=== PATIENT | female | born 1940 | race Caucasian/White ===

== ENCOUNTER → 2016-04-05 | Outpatient (CLI) | payer MEDICARE, OTHER | LOC: GMAB 11:09 | PROVIDERS: ATTEND Family Medicine | DX: I10 Essential (primary) hypertension (principal) ==

== ENCOUNTER 2016-06-06 12:46 | Emergency (ER) | payer MEDICARE, OTHER ==
--- NOTE | 2016-06-06 13:51 | ED.PDOC ---
History of Present Illness - General Chief Complaint: General Stated Complaint: LLE weekness Time Seen by Provider: 06/06/16 13:46 Source: patient, RN notes reviewed, Vital Signs reviewed Exam Limitations: no limitations - History of Present Illness Initial Comments: Patient reports that while in the shower about 11am this morning her left leg gave out on her and she got dizzy. She managed to get out of the shower and sit down. She got dressed, leg seemed better then she had a second episode about 11: 30. She stayed seated until her got back from tenriism about 12pm. She initially used her husbands walker incase her symptoms returned but now reports her leg is back to normal. No PIERCE, SOB or chest pain. One prior similar episode a couple weeks ago when she was unable to get out of the car due to not being able to use her left leg. That too resolved on its own. Timing/Duration: momentarily, intermittent, resolved prior to arrival Severity: mild Improving Factors: nothing Worsening Factors: nothing Associated Symptoms: weakness - LLE Allergies/Adverse Reactions: Allergies NO KNOWN ALLERGY Allergy (Verified 06/06/16 14:09) Home Medications: Ambulatory Orders Aspirin [Aspirin EC] 81 mg PO DAILY 02/11/14 Calcium 600 mg PO DAILY 02/11/14 Lisinopril 20 mg PO DAILY 02/11/14 Multiple Vitamins W/ Minerals [Centrum Silver] 1 tab PO DAILY 02/11/14 Niacin [Niacin ER] 500 mg PO DAILY 02/11/14 Vevay-3 Fatty Acids [Fish Oil] 2,000 mg PO DAILY 02/11/14 Pantoprazole Sodium 40 mg PO DAILY 02/11/14 Saxagliptin-Metformin HCl [Kombiglyze Xr 5-1000 mg] 1 tab PO BID 02/11/14 Review of Systems - Review of Systems Constitutional: States: no symptoms reported EENTM: States: no symptoms reported Respiratory: States: no symptoms reported Cardiology: States: no symptoms reported Gastrointestinal/Abdominal: States: no symptoms reported Genitourinary: States: no symptoms reported Musculoskeletal: States: see HPI Skin: States: no symptoms reported Neurological: States: no symptoms reported, weakness - LLE. Denies: headache, numbness, paresthesia, pre-existing deficit, tingling Endocrine: States: no symptoms reported Hematologic/Lymphatic: States: no symptoms reported Past Medical History (General) - Patient Medical History Hx Cardiac Disorders: Yes - cardiac cath Hx Congestive Heart Failure: No Hx Pacemaker: No Hx Hypertension: Yes Hx Diabetes: Yes Hx MRSA: No Family Medical History - Family History Mother Family History: Unknown Physical Exam - Physical Exam General Appearance: Alert, Comfortable, No apparent distress, Well Developed, Well Groomed, Well Hydrated, Well Nourished Eye Exam: bilateral normal Ears, Nose, Throat: hearing grossly normal, normal ENT inspection, normal pharynx Neck: normal inspection Respiratory: chest non-tender, lungs clear, normal breath sounds, no respiratory distress, no accessory muscle use Cardiovascular/Chest: normal peripheral pulses, regular rate, rhythm, no edema, no gallop, no JVD, no murmur Peripheral Pulses: dorsalis pedis,right: 2+, dorsalis pedis,left: 2+ Extremity: normal range of motion, non-tender, normal inspection, no pedal edema Neurologic: box brander II-XII nml as tested, no motor/sensory deficits, alert, normal mood/affect, oriented x 3 DTR: 2+: Patellar, left, Patellar, right Skin Exam: normal color, warm/dry Lymphatic: no adenopathy Progress - Progress Progress: 06/06/16 14:39 Discussed results with patient and . Expressed concern that she is having TIA's and needs further workup BARBRA with her PCP. - Results/Orders Results/Orders: Laboratory Tests 06/06/16 13:55 WBC 6.4 RBC 4.99 Hgb 14.7 Hct 43.8 MCV 87.7 MCH 29.5 MCHC 33.6 RDW 13.1 Plt Count 234 MPV 8.8 Absolute Neuts (auto) 3.40 Absolute Lymphs (auto) 2.00 Absolute Monos (auto) 0.70 Absolute Eos (auto) 0.20 Absolute Basos (auto) 0.10 Neutrophils % 52.8 Lymphocytes % 32.0 Monocytes % 11.7 H Eosinophils % 2.6 Basophils % 0.9 Sodium 136 Potassium 3.8 Chloride 102 Carbon Dioxide 23 Anion Gap 14.8 BUN 19 H Creatinine 0.61 BUN/Creatinine Ratio 31.1 H Random Glucose 293 H Serum Osmolality 285.0 Calcium 9.3 Total Bilirubin 0.6 AST 40 ALT 33 Alkaline Phosphatase 68 Serum Total Protein 7.3 Albumin 4.3 Globulin 3.0 Albumin/Globulin Ratio 1.4 Vital Signs - 24 hr 06/06/16 12:55 Temperature 99.3 F Pulse Rate [ 82 Left Radial] Respiratory 20 Rate Blood Pressure 174/78 [Left Arm] O2 Sat by Pulse 92 L Oximetry - EKG/XRAY/CT CT Ordered: Yes - Head: No acute intracranial abnormality Departure - Departure Clinical Impression: TIA (transient ischemic attack), Left leg weakness Time of Disposition: 14:38 Disposition: Discharge to Home or Self Care Condition: Good Departure Forms: ED Discharge - Pt. Copy, Patient Portal Self Enrollment Diet: resume usual diet Activity: increase activity as tolerated Referrals: Mehdi Encarnacion MD [Primary Care Provider] - 1-5 Days Home Medications: Ambulatory Orders Aspirin [Aspirin EC] 81 mg PO DAILY 02/11/14 Calcium 600 mg PO DAILY 02/11/14 Lisinopril 20 mg PO DAILY 02/11/14 Multiple Vitamins W/ Minerals [Centrum Silver] 1 tab PO DAILY 02/11/14 Niacin [Niacin ER] 500 mg PO DAILY 02/11/14 Vevay-3 Fatty Acids [Fish Oil] 2,000 mg PO DAILY 02/11/14 Pantoprazole Sodium 40 mg PO DAILY 02/11/14 Saxagliptin-Metformin HCl [Kombiglyze Xr 5-1000 mg] 1 tab PO BID 02/11/14
[2016-06-06 14:14] VITALS: O2SAT 92
--- NOTE | 2016-06-06 14:30 | CT ---
PROCEDURE: Head HISTORY: RLE weakness Indication: Same as above Comparison: None Technique: CT of the head was done without intravenous contrast was done in the orthogonal planes. FINDINGS: There is no intracranial hemorrhage, midline shift mass effect or acute focal infarct. If clinical concern exists regarding an acute ischemic/vascular pathology being responsible for patient's symptomatology, an MRI of the brain is more sensitive than the current study, in ruling out such a possibility. There is good will/white matter differentiation. The ventricular system is normal. The mastoid air cells are unremarkable . The paranasal sinuses are unremarkable . There is no visualization of acute fractures involving the calvarium or the skull base. IMPRESSION: There is no acute intracranial abnormality. Electronically signed by: Abdulaziz Moseley MD 06/06/2016 2:30 PM CDT
[2016-06-06 14:37] VITALS: BP 154/72
[2016-06-06 14:58] VITALS: TEMP 99
== END 2016-06-06 14:58 | disposition home or self-care (01) ==
LOC: ER 12:46
DX: G45.9 Transient cerebral ischemic attack, unspecified (principal); M62.81 Muscle weakness (generalized); I10 Essential (primary) hypertension; E11.9 Type 2 diabetes mellitus without complications; Z79.82 Long term (current) use of aspirin; Z79.899 Other long term (current) drug therapy

== ENCOUNTER → 2017-04-06 | Outpatient (CLI) | payer MEDICARE, OTHER | END | disposition home or self-care (01) | LOC: GMAB 16:35 | PROVIDERS: ATTEND Family Medicine | DX: R94.5 Abnormal results of liver function studies (principal) ==

== ENCOUNTER → 2017-04-11 | Outpatient (CLI) | payer MEDICARE, OTHER ==
--- NOTE | 2017-04-11 10:13 | RAD ---
Three-view right hand. 3 views right fifth finger. Indication: PAIN IN LEFT LITTLE FINGER Comparison: None. Impression: The bones are osteopenic. Given this limitation, no acute fracture of the right hand or right fifth finger identified. 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 Electronically signed by: Eros Mccain MD 04/11/2017 10:12 AM [facility]
--- NOTE | 2017-04-11 10:14 | RAD ---
Three-view right hand. 3 views right fifth finger. Indication: PAIN IN LEFT LITTLE FINGER Comparison: None. Impression: The bones are osteopenic. Given this limitation, no acute fracture of the right hand or right fifth finger identified. 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 Electronically signed by: Eros Mccain MD 04/11/2017 10:12 AM [facility]
== END | disposition home or self-care (01) ==
LOC: RAD 08:10
PROVIDERS: ATTEND Orthopaedic Surgery
DX: M79.645 Pain in left finger(s) (principal); M79.642 Pain in left hand

== ENCOUNTER 2017-04-13 05:51 | Day surgery (SDC) | payer MEDICARE, OTHER ==
[~2017-04-13 05:51] MED LIST: LACTATED RINGERS 1,000 ML ONE; SODIUM CHL 0.9% 50ML MIN-BAG+ 50 ML IVPB ONE; ceFAZolin SODIUM 1 GM VIAL ONE
[2017-04-13] MEDS ORDERED: BUPIVACAINE 0.25% INJ 30 ML VIAL INJ ONE (08:34)
[2017-04-13] MEDS ORDERED: LIDOCAINE 1% 50 ML VIAL INJ ONE (08:34)
[2017-04-13] MEDS ORDERED: ceFAZolin SODIUM 1 GM VIAL ONE (08:35)
[2017-04-13] MEDS ORDERED: VANCOMYCIN HCL INJ 1,000 MG VIAL IVPB ONE (08:35)
[2017-04-13] MEDS ORDERED: PROPOFOL 200 MG/20 ML VIAL IV ONE (10:00)
[2017-04-13 10:22] VITALS: BP 130/70; TEMP 97.6; O2SAT 97
--- NOTE | 2017-04-15 09:53 | OP ---
DATE OF PROCEDURE: 04/13/17 PREOPERATIVE DIAGNOSIS: 1. Fourth trigger finger. POSTOPERATIVE DIAGNOSIS: 1. Fourth trigger finger. PROCEDURE: 1. Trigger finger release. SURGEON: Chau Carty MD. RN ACUTE DIALYSIS: Alhaji Siddiqui CST, SA-C. ANESTHESIA: Local with sedation. COMPLICATIONS: None. FINDINGS: Triggering at the A1 ross of the fourth digit. INDICATION: Ms. Iverson has a history of clicking, locking and pain at the fourth A1 ross. She has had this going on for several months and it is causing it to lock down and sometimes she has to manually straighten the digit. Because of her ongoing symptoms, she has requested operative intervention. After discussing the risks, benefits and alternatives to operative therapy, the patient has given informed consent for A1 ross release. PROCEDURE: The patient was brought to the Operating Room and placed in the supine position. Sedation was administered and local anesthetic was injected into the operative area. Following injection, the arm was sterilely prepped and draped. A transverse incision was made directly overlying the A1 ross of the triggering digit and blunt dissection was carried down to the ross while protecting the digital nerves. After identification of the rsos, the ross was transected and a Franklin elevator was passed both proximally and distally to ensure complete release. The finger was flexed and extended and there was no evidence of locking or clicking. The wound was thoroughly irrigated and closed with Nylon suture. A sterile dressing was placed and the patient was taken to the Day Surgery Unit. POSTOPERATIVE INSTRUCTIONS: The patient has been encouraged to do range of motion of the digits and will followup with us in approximately two days. #[id number] [facility]
== END 2017-04-13 10:05 | disposition home or self-care (01) ==
LOC: AMB 05:51
PROVIDERS: ATTEND Orthopaedic Surgery
DX: M65.341 Trigger finger, right ring finger (principal); I10 Essential (primary) hypertension; I25.10 Atherosclerotic heart disease of native coronary artery without angina pectoris; E11.9 Type 2 diabetes mellitus without complications; K21.9 Gastro-esophageal reflux disease without esophagitis; Z79.02 Long term (current) use of antithrombotics/antiplatelets; Z79.4 Long term (current) use of insulin; Z79.899 Other long term (current) drug therapy
CPT/HCPCS: 01810; 26055; 81001; 82948; 87070; 87086; 87088; 87186; J0690; J3370; J3490; J7050; J7120

== ENCOUNTER → 2017-04-20 | Outpatient (CLI) | payer MEDICARE, OTHER ==
--- NOTE | 2017-04-20 19:29 | US ---
EXAM DESCRIPTION: Liver: Ultrasound CLINICAL HISTORY: 76 years Female, ABNORMAL RESULTS OF LIVER FUNCTION STUDY COMPARISON: CT abdomen and pelvis 05/29/2015. TECHNIQUE: Standard transabdominal scanning: Two-dimensional and Doppler modes. FINDINGS: Normal echogenicity and size of the pancreas. Liver is echogenic and dense with long axis of the right lobe 14.6 cm. Smooth capsule. No intrahepatic duct dilation. No ascites. Hepatopedal flow in the portal vein. No stones or sludge in the gallbladder. Wall thickness 2.6 mm. No fluid. Nontender with transducer pressure. Common bile duct normal caliber 4.5 mm. Long axis of the right kidney 10 cm. Normal mid renal cortical thickness. No hydronephrosis. No echogenic stones. IMPRESSION: Steatosis of the liver but no enlargement. Smooth capsule. No ascites. Normal portal vein flow. Normal intrahepatic biliary duct caliber. Gallbladder, pancreas, and right kidney are unremarkable by ultrasound. Electronically signed by: Alhaji Rea MD 04/20/2017 7:28 PM [facility]
== END ==
LOC: US 08:30
PROVIDERS: ATTEND Family Medicine
DX: R94.5 Abnormal results of liver function studies (principal); K76.0 Fatty (change of) liver, not elsewhere classified

== ENCOUNTER → 2017-04-22 | Outpatient (CLI) | payer MEDICARE, OTHER | LOC: GMAB 13:14 | PROVIDERS: ATTEND Family Medicine | DX: N39.0 Urinary tract infection, site not specified (principal) ==

== ENCOUNTER → 2017-07-07 | Outpatient (CLI) | payer MEDICARE, OTHER | LOC: GMAB 14:49 | PROVIDERS: ATTEND Family Medicine | DX: R30.0 Dysuria (principal) ==

== ENCOUNTER → 2017-10-19 | Outpatient (CLI) | payer MEDICARE, OTHER | LOC: GMAE 11:22 | PROVIDERS: ATTEND Family Medicine | DX: I10 Essential (primary) hypertension (principal); R30.0 Dysuria; M62.81 Muscle weakness (generalized) ==

== ENCOUNTER → 2017-10-26 | Outpatient (CLI) | payer MEDICARE, OTHER | LOC: GMAE 10:48 | PROVIDERS: ATTEND Family Medicine | DX: R30.0 Dysuria (principal) ==

== ENCOUNTER → 2017-12-22 | Outpatient (CLI) | payer MEDICARE, OTHER | LOC: GMAE 10:32 | PROVIDERS: ATTEND Family Medicine | DX: N39.0 Urinary tract infection, site not specified (principal) ==

== ENCOUNTER → 2018-01-03 | Outpatient (CLI) | payer MEDICARE, OTHER | LOC: GMAE 14:45 | PROVIDERS: ATTEND Family Medicine | DX: R30.0 Dysuria (principal) ==

== ENCOUNTER → 2018-04-10 | Outpatient (CLI) | payer MEDICARE, OTHER | LOC: GMAE 10:25 | PROVIDERS: ATTEND Family Medicine | DX: I10 Essential (primary) hypertension (principal) ==

== ENCOUNTER → 2018-06-14 | Outpatient (CLI) | payer MEDICARE, OTHER ==
--- NOTE | 2018-06-15 07:41 | US ---
EXAM DESCRIPTION: Renal: Ultrasound. CLINICAL HISTORY: 78 years Female ACUTE UTI COMPARISON: Bilateral renal arterial Doppler evaluation on the same visit. TECHNIQUE: Transcutaneous scanning: Two-dimensional and Doppler modes. FINDINGS: Right kidney measures 11.1 x 5.7 x 4.9 cm; mid-renal cortical thickness normal . Normal echogenicity. No hydronephrosis No echogenic stones. Smooth contour of the kidney with no perinephric fluid. Normal vascularity. Proximal ureter not visualized. Left kidney measures 12.1 x 5.5 x 5.4 cm; mid-renal cortical thickness normal.. Normal echogenicity. No hydronephrosis. No echogenic stones. Smooth contour of the kidney with no perinephric fluid. Normal vascularity.. Proximal ureter not visualized. Urinary bladder was visualized. Small size, not measured. No voiding. Abdominal aorta: not measured. IMPRESSION: Kidneys having normal grayscale appearance and normal size with no hydronephrosis. Doppler vascularity bilaterally appears normal. No perinephric fluid. Bladder was contracted. Electronically signed by: Alhaji Rea MD 06/15/2018 7:38 AM CDT
== END ==
LOC: US 08:28
PROVIDERS: ATTEND Student in an Organized Health Care Education/Training Program
DX: N39.0 Urinary tract infection, site not specified (principal)

== ENCOUNTER → 2019-07-25 | Outpatient (CLI) | payer MEDICARE, OTHER | LOC: GMAE 10:53 | PROVIDERS: ATTEND Family Medicine | DX: I10 Essential (primary) hypertension (principal); E11.9 Type 2 diabetes mellitus without complications; E78.2 Mixed hyperlipidemia ==

== ENCOUNTER → 2020-05-14 | Outpatient (CLI) | payer MEDICARE, OTHER | LOC: GMA MATASK 16:36 | PROVIDERS: ATTEND Family Medicine | DX: N39.0 Urinary tract infection, site not specified (principal); E11.9 Type 2 diabetes mellitus without complications ==